=== PATIENT | male | born 1985 | race Caucasian/White ===

== ENCOUNTER → 2021-12-02 10:46 | Outpatient (CLI) | payer OTHER, SELFPAY ==
--- NOTE | ~2021-12-02 | MR_ITS ---
EXAMINATION: MR knee RT wo con DATE: 12/02/2021 11:21 INDICATION: Right knee pain TECHNIQUE: Magnetic resonance imaging (MRI) of the right knee was performed without intravenous contr ast. Sequences included coronal PD-weighted FSE, coronal PD-weighted FS FSE, sagittal T2-weighted FS E, sagittal PD-weighted FS FSE and axial PD weighted fat saturated FSE. COMPARISON: None. FINDINGS: Medial compartment: Medial meniscus is normal. Articular cartilage is normal. Lateral compartment: Lateral meniscus is normal. Articular cartilage is normal. Patellofemoral compartment: Articular cartilage is normal. Ligaments and tendons: Anterior and posterior cruciate ligaments are normal. The medial collateral ligament and fibular erin ateral ligament complex are normal. The extensor mechanism is normal. The visualized medial and later al hamstring tendons as well as the iliotibial band are normal. Fluid: Physiologic amount of fluid in the joint space. No loose osteochondral bodies identified. Osseous/other: Normal marrow signal. No fracture or pathologic marrow replacing process. Mild increased fluid signal in the superficial suprapatellar fat pad which can be seen with fat pad impingement syndrome. IMPRESSION: 1. No internal derangement with normal menisci, cartilage and stabilizing ligaments of the right knee . 2. Mild increased fluid signal in the superficial suprapatellar fat pad which can be seen with fat pa d impingement syndrome. Reviewed, dictated and finalized at location A. IMPRESSION: 1. No internal derangement with normal menisci, cartilage and stabilizing ligam ents of the right knee. 2. Mild increased fluid signal in the superficial suprapatellar fat pad which c an be seen with fat pad impingement syndrome.
== END ==
PROVIDERS: PCP Family Medicine; Visit Provider Nurse Practitioner Family
DX: M25.561 Pain in right knee (principal)
CPT/HCPCS: 73721

== ENCOUNTER → 2023-01-04 10:49 | Outpatient (CLI) | payer OTHER, SELFPAY ==
--- NOTE | ~2023-01-04 | MR_ITS ---
MRI of the right shoulder Technique: Axial proton-density fat-sat images, coronal proton density fat-sat and T2 fat-sat images, and sagittal T1-weighted and T2 fat-sat images were acquired. Clinical History: Pain Findings: No significant degenerative change seen at the AC joint. Coracoclavicular, coracoacromial, and coracohumeral ligaments are intact. Supraspinatus and infraspinatus tendons are intact. There is moderate to advanced tendinosis of the i nfraspinatus tendon distally. Subscapularis tendon is intact, with mild tendinosis. Tendon of the shahla g head of the biceps is intact. No definite labral tear seen. Inferior glenohumeral ligament is intact. No effusion or degenerative change at the glenohumeral join t. No fluid distention of the subacromial/subdeltoid bursa. No muscle atrophy or edema. Impression: Rotator cuff tendinosis, as above. No rotator cuff or labral tear seen. Reviewed, dictated and finalized at [facility]. LE FARMER Impression: Rotator cuff tendinosis, as above. No rotator cuff or labral tear seen.
== END ==
PROVIDERS: PCP Nurse Practitioner Family; Visit Provider Nurse Practitioner Family
DX: M67.813 Other specified disorders of tendon, right shoulder (principal)
CPT/HCPCS: 73221

== ENCOUNTER 2024-12-06 05:11 | Emergency (ER) | payer OTHER, SELFPAY ==
--- NOTE | ~2024-12-06 | CT_ITS ---
Arnoldo Garcia EXAMINATION: CT abdomen pelvis w con COMPARISON: None HISTORY: RLQ pain TECHNIQUE: Axial images were obtained through the abdomen, pelvis post administration of IV contrast. Oral contrast was also administered. Coronal reconstruction images were obtained from the axial views. CT scan performed using dose optimization techniques including the following automated exposure control; adjustment of mA and/or kV; use of iterative reconstruction technique. Automatic exposure control was used to reduce radiation dose. Permanent radiation dose record is archived to PACS. FINDINGS: CT abdomen: LUNG BASES: The lung bases are clear. The visualized portions of the heart and pericardium are unremarkable. LIVER: Unremarkable, liver contours intact, no lesions. SPLEEN: Unremarkable. KIDNEYS: Right Kidney: Unremarkable. No calculi. No hydronephrosis. Left Kidney: Unremarkable. No calculi. No hydronephrosis ADRENAL GLANDS: Unremarkable. PANCREAS: Moderate pancreatic atrophy. GALLBLADDER/BILIARY: Unremarkable. No biliary dilatation. STOMACH AND ESOPHAGUS: Visualized stomach and esophagus within normal limits. BOWEL/MESENTERY: Moderate fecal content, no colitis or diverticulitis. Appendix not identified, no inflammation surrounding the cecum. No stranding within the mesentery. No thickened or dilated loops of small bowel. ADENOPATHY/RETROPERITONEUM: No lymphadenopathy. AORTA/VASCULATURE: Normal caliber aorta. FREE FLUID OR FREE AIR: None. CT pelvis: SOLID ORGANS/REPRODUCTIVE: Unremarkable. BLADDER: Within normal limits. OSSEOUS STRUCTURES: No acute osseous abnormality.No suspicious lesions. OVERLYING SOFT TISSUES: Unremarkable. IMPRESSION: 1. No etiology identified to explain the patient's symptoms. Follow-up suggested if symptoms persist. Reviewed, dictated and finalized at location P. IMPRESSION: 1. No etiology identified to explain the patient's symptoms. Follow-up suggeste d if symptoms persist.
[2024-12-06 05:14] VITALS: BP 123/69; PULSE 62; RESP 16; TEMP 36.7; O2SAT 100
[2024-12-06 05:43] LABS: Hematocrit 42.8 % (42.0-52.0); Hemoglobin 14.8 g/dL (14.0-18.0); Immature Granulocyte Percent A 0.2 % (0-0.5); Lymphocytes Absolute Auto 1.89 K/mm3 (0.9-3.2); Mean Corpuscular HGB Conc 34.6 g/dl (32-36); Mean Corpuscular Hemoglobin 31.0 pg (26-34); Mean Corpuscular Volume 89.7 fl (80-100); Nucleated Red Blood Cells Absolute Auto 0.000 K/mm3 (0.0-0.012); Nucleated Red Blood Cells Perc 0.0 % (0.0-0.2); Platelet Count Result 245 k/mm3 (150-375); Red Blood Count 4.77 M/mm3 (4.6-6.20); White Blood Count 4.8 K/mm3 (4.5-10.0)
[2024-12-06 05:57] LABS: Add Urine Microscopic? YES; Appearance Urine Clear (Clear); Glucose Urine UA Trace mg/dL (Negative); Leukocyte Esterase Ur Trace LEU/UL (Negative); Nitrate Urine Negative (Negative); Non Pathogenic Casts 0-2; Specific Grav Ur 1.014 (1.001-1.035)
[2024-12-06 06:02] LABS: Alanine Aminotransferase 36 U/L (6-50); Albumin Level 4.3 g/dL (3.5-5.1); Alkaline Phosphatase 93 U/L (38-126); Anion Gap 6 mmol/L (4-12); Aspartate Amino Transferase 36 U/L (17-59); Bilirubin,Total 0.6 mg/dL (0.2-1.3); Blood Urea Nitrogen 15 mg/dL (9-20); Calcium 9.1 mg/dL (8.4-10.2); Carbon Dioxide 29 mmol/L (22-30); Chloride 102 mmol/L (98-107); Estimated CRCL calculation 107 ml/min; Estimated Glomerular Filt Rate > 60; Glucose 187 mg/dL (65-110); Lipase 58 U/L (23-300); Potassium 4.1 mmol/L (3.4-5.0); Sodium 137 mmol/L (137-145); Total Protein 7.4 g/dL (6.3-8.2)
[2024-12-06 07:32] VITALS: BP 129/70; PULSE 66; RESP 17; TEMP 36.3; O2SAT 100
[2024-12-06 07:59] VITALS: BP 149/76; PULSE 64; RESP 14; O2SAT 100
--- NOTE | 2024-12-06 08:24 | ED.GENADULT ---
HPI - General Adult General Chief complaint: Abdominal Pain Stated complaint: RLQ abd pain Time Seen by Provider: 12/06/24 07:54 History of Present Illness HPI narrative: 39-year-old male with history of prior appendectomy presented to the emergency department for evaluation for right lower quadrant abdominal pain that has been bothering him mainly at nighttime over the last few days. Patient states he has no specific incident of injury but has been working out more. Patient's primary care physician was concerned he may developing a hernia. Patient states the pain bothers him at nighttime but does not bother as much during the day but states the pain is persistent and low level throughout the day. Patient states he has not been doing any abdominal straining since the symptoms started. At time of evaluation patient declines any medication for pain control. Related Data Home Medications ?Medication ?Instructions ?Recorded ?Confirmed ?Last Taken ?Type enalapril maleate 2.5 mg tablet 2.5 mg PO DAILY 02/08/19 12/04/24 Unknown History insulin lispro 100 unit/mL subcut 12/04/24 12/04/24 Unknown History subcutaneous solution (Humalog U-100 Insulin) Allergies Allergy/AdvReac Type Severity Reaction Status Date / Time No Known Allergies Allergy Verified 12/06/24 05:13 Review of Systems Review of Systems: All systems reviewed & are unremarkable except as noted in HPI and below PMFSH Past Medical History Medical History Rotator cuff tendonitis Right shoulder pain BMI 21.0-21.9, adult Type 1 diabetes mellitus without complication Coital headache Plica of knee Impingement syndrome involving patellar fat pad of right knee Medial meniscus tear Quadriceps tendinitis Right knee pain Vitamin D deficiency, unspecified Screening for thyroid disorder Feeling irritable Other fatigue Loose toenail BMI 22.0-22.9, adult Adhesive capsulitis Diabetes Left shoulder pain Diabetes type I Encounter for lipid screening for cardiovascular disease Surgical History Surgical History History of hand surgery trigger finger release, Dr. Bass History of appendectomy Family History Family History Father No problems noted. Mother No problems noted. Sibling No problems noted. Other Family history of migraine headaches Family history of thoracic aortic aneurysm Social History Social History Smoking status: Never smoker Second hand tobacco smoke exposure: No Alcohol intake: current Alcohol use details: 6-7 drinks per week Substance use: never Substance use type: does not use Do You Feel Safe in your Home?: Yes Lack of Transportation: No Lack of Food: Never True Current Housing: I Have Housing Concerned About Future Housing: No Difficulty Paying Gas/Electric Bills: No Difficulty Paying for Meds: No Currently Unemployed: No Education: Bachelor's Degree Difficulty w/ Childcare or Family Care: No Living arrangements: with family Occupation/Education: occupation 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 HEAD: normocephalic, atraumatic. EYES: PERRLA/EOMI, conjunctivae clear. NOSE: Normal no drainage EARS:TMS clear with good light reflex. THROAT: Pharynx clear, no exudate. NECK: Supple. No adenopathy, no masses. RESPIRATORY: Airway patent, respirations nonlabored. Clear to auscultation bilaterally, no rales, rhonchi, wheezing. CARDIOVASCULAR: Regular rate and rhythm without murmurs rubs or gallops. ABDOMINAL: Old appendectomy scar, no tenderness at right lower quadrant, patient does have some tenderness to palpation over the inguinal region with no palpated incarcerated hernia. MUSCULOSKELETAL: Moves all extremities. Strength/ROM intact, No edema, No calf tenderness. NEURO: Alert. Cranial nerves II through XII intact. Good gait. Good coordination SKIN: Warm, dry. Normal Color Course Vital Signs Vital signs: Vital Signs Temperature 98.0 F 12/06/24 05:14 Pulse Rate 62 12/06/24 05:14 Respiratory Rate 16 12/06/24 05:14 Blood Pressure 123/69 12/06/24 05:14 Pulse Oximetry 100 12/06/24 05:14 Oxygen Delivery Room Air 12/06/24 05:14 Temperature 97.7 F 12/06/24 10:25 Pulse Rate 79 12/06/24 10:25 Respiratory Rate 15 12/06/24 10:25 Blood Pressure 142/78 H 12/06/24 10:25 Pulse Oximetry 100 12/06/24 10:25 Oxygen Delivery Room Air 12/06/24 05:14 Medical Decision Making [facility] Narrative Medical decision making narrative: 39-year-old male presents emergency department for evaluation for lower quadrant abdominal pain. Patient is currently afebrile no leukocytosis hemoglobin of 14.8. No acute abnormalities on his CMP other than a mildly elevated blood sugar 187. No evidence of urinary tract infection. At time of initial evaluation patient did decline medications for pain control. CT scan was ordered to evaluate for possible incarcerated hernia. CT scan showed no acute intra-abdominal pathology. No evidence of incarcerated hernia. I do suspect patient does have be getting stages of an inguinal hernia patient will be provided outpatient follow-up with surgery. Patient was also advised to take a stool softener to prevent having to bear down heavy for a bowel movement and to prevent heavy lifting. All questions concerns were addressed patient was comfortable the plan for discharge and close follow-up. Differential Diagnosis Differential Diagnosis: Appendectomy, colitis, diverticulitis, inguinal hernia Vital Signs Vital Signs: Vital Signs Temperature 98.0 F 12/06/24 05:14 Pulse Rate 62 12/06/24 05:14 Respiratory Rate 16 12/06/24 05:14 Blood Pressure 123/69 12/06/24 05:14 Pulse Oximetry 100 12/06/24 05:14 Oxygen Delivery Room Air 12/06/24 05:14 Temperature 97.7 F 12/06/24 10:25 Pulse Rate 79 12/06/24 10:25 Respiratory Rate 15 12/06/24 10:25 Blood Pressure 142/78 H 12/06/24 10:25 Pulse Oximetry 100 12/06/24 10:25 Oxygen Delivery Room Air 12/06/24 05:14 Lab Data Lab results reviewed: Yes I reviewed the patient's lab results. 12/06/24 05:32 12/06/24 05:32 Labs: Lab Results 12/06/24 Range/Units 05:32 WBC 4.8 (4.5-10.0) K/mm3 RBC 4.77 (4.6-6.20) M/mm3 Hgb 14.8 (14.0-18.0) g/dL Hct 42.8 (42.0-52.0) % MCV 89.7 (80-100) fl MCH 31.0 (26-34) pg MCHC 34.6 (32-36) g/dl RDW 11.4 L (11.5-14.5) % Plt Count 245 (150-375) k/mm3 MPV 10.2 (7.4-10.4) fl Immature Gran % (Auto) 0.2 (0-0.5) % Neut % (Auto) 42.0 L (45.5-73.1) % Lymph % (Auto) 39.3 (18.3-44.2) % Leslie % (Auto) 10.6 H (2.6-8.5) % Eos % (Auto) 6.4 H (0-4.4) % Baso % (Auto) 1.5 H (0.2-1.2) % Lymph # (Auto) 1.89 (0.9-3.2) K/mm3 Leslie # (Auto) 0.5 (0.1-0.6) K/mm3 Eos # (Auto) 0.3 (0-0.3) K/mm3 Baso # (Auto) 0.1 (0.0-0.1) K/mm3 Abs Immat Gran (auto) 0.01 (0.00-0.031) K/mm3 Absolute Neuts (auto) 2.0 (1.3-6.7) K/mm3 Absolute Nucleated RBC 0.000 (0.0-0.012) K/mm3 Nucleated RBC % 0.0 (0.0-0.2) % Sodium 137 (137-145) mmol/L Potassium 4.1 (3.4-5.0) mmol/L Chloride 102 (98-107) mmol/L Carbon Dioxide 29 (22-30) mmol/L Anion Gap 6 (4-12) mmol/L BUN 15 (9-20) mg/dL Creatinine 0.87 (0.7-1.3) mg/dL Estim Creat Clear Calc 107 ml/min Estimated GFR > 60 (59 - ) Glucose 187 H (65-110) mg/dL Calcium 9.1 (8.4-10.2) mg/dL Total Bilirubin 0.6 (0.2-1.3) mg/dL AST 36 (17-59) U/L ALT 36 (6-50) U/L Alkaline Phosphatase 93 (38-126) U/L Total Protein 7.4 (6.3-8.2) g/dL Albumin 4.3 (3.5-5.1) g/dL Lipase 58 (23-300) U/L Urine Color Yellow (Yellow) Urine Appearance Clear (Clear) Urine pH 6.0 (5.0-9.0) Ur Specific [place] 1.014 (1.001-1.035) Urine Protein Negative (Negative) mg/dL Urine Glucose (UA) Trace H (Negative) mg/dL Urine Ketones Negative (Negative) mg/dL Ur Blood (Man) Negative (Negative) Urine Nitrate Negative (Negative) Urine Bilirubin Negative (Negative) Urine Urobilinogen 0.2 (<2.0) mg/dL Leukocyte Esterase Rfl Trace H (Negative) CARLTON/UL Urine RBC 0-2 (0-2) /hpf Urine WBC 0-5 (0-3) /hpf Ur Squamous Epith Cells None seen (Few) /hpf Urine Bacteria None seen /hpf Urine Casts 0-2 Imaging Data Radiologist's impression: Impressions Abdomen/Pelvis CT 12/06/24 08:37 IMPRESSION: 1. No etiology identified to explain the patient's symptoms. Follow-up suggested if symptoms persist. Discharge Plan Discharge Clinical Impression: Right groin pain Patient Disposition: Home Condition: Stable Instructions: Antibiotic Form, Inguinal Hernia (ED), Abdominal Pain (ED) Additional Instructions: Your CT scan showed no acute abnormality. Your symptoms are concerning for early stage inguinal hernia. Take stool softeners to prevent constipation and avoid heavy lifting. Have close follow-up with surgery. Naproxen directed for the next 7 days. If you have any worsening symptoms then please call or return to the emergency department. Patient Language: Citizen Of [place] Prescriptions: New naproxen [Naprosyn] 500 mg tablet 500 mg PO BID 7 Days Qty: 14 0RF No Action enalapril maleate 2.5 mg tablet 2.5 mg PO DAILY insulin lispro [Humalog U-100 Insulin] 100 unit/mL solution subcut Follow-up/Referrals: Tigist Marshall MD [Physician, General Surgery] Onofre Casanova MD [Primary Care Provider, Family Practice]
[2024-12-06 08:53] VITALS: BP 127/73; PULSE 76; RESP 16; O2SAT 100
[2024-12-06] MEDS: LACTATED RINGERS 1,000 ML 999 ML IV CONT (08:53)
[2024-12-06 10:25] VITALS: BP 142/78; PULSE 79; RESP 15; TEMP 36.5; O2SAT 100
== END 2024-12-06 10:26 | disposition home or self-care (01) ==
PROVIDERS: Student in an Organized Health Care Education/Training Program; Emergency Provider Emergency Medicine; PCP Family Medicine
DX: R10.31 Right lower quadrant pain (principal); E10.9 Type 1 diabetes mellitus without complications; E55.9 Vitamin D deficiency, unspecified; Z79.4 Long term (current) use of insulin
CPT/HCPCS: 36415; 74177; 80053; 81001; 83690; 85025; 96360; 99284; J7120; Q9967